=== PATIENT | male | born 1980 | race Two or more races ===

== ENCOUNTER 2021-06-18 22:44 | Emergency (ER) | payer OTHER ==
[~2021-06-18] VITALS: Ht 177.8 cm; Wt 122.5 kg
[2021-06-18] MEDS ORDERED: NORFLEX100MG PO (23:42)
[2021-06-18] MEDS ORDERED: KETO10TA2 PO (23:42)
== END 2021-06-18 23:46 | disposition home or self-care (01) ==
LOC: ER 22:44
DX: M77.8 Other enthesopathies, not elsewhere classified (principal)